=== PATIENT | female | born 1945 | race Caucasian/White ===

== ENCOUNTER 2016-12-23 12:46 | Inpatient (IN) ==
[2016-12-23] MEDS ORDERED: ATIVAN PO PRN ×2 (17:27→18:10)
[2016-12-23] MEDS ORDERED: ROXANOL CONC. LIQUID PEG PRN (17:34)
[2016-12-23] MEDS ORDERED: CALMOSEPTINE OINTMENT TOP PRN (17:42)
[2016-12-23] MEDS ORDERED: PERICOLACE PO PRN (17:47)
[2016-12-23] MEDS ORDERED: GLYCERIN ADULT PR PRN (17:48)
[2016-12-23] MEDS ORDERED: DULCOLAX PR PRN (17:50)
[2016-12-23] MEDS ORDERED: FLEET ENEMA PR PRN (17:51)
[2016-12-23] MEDS ORDERED: MAALOX PLUS LIQUID PO PRN (17:53)
[2016-12-23] MEDS ORDERED: ROBITUSSIN-DM PO PRN (17:54)
[2016-12-23] MEDS ORDERED: TYLENOL PO PRN (18:02)
[2016-12-23] MEDS ORDERED: TYLENOL PR PRN (18:03)
[2016-12-23] MEDS ORDERED: EUCERIN CREAM TOP PRN (18:03)
[2016-12-23] MEDS ORDERED: BENADRYL PO PRN (18:04)
[2016-12-23] MEDS ORDERED: PYRIDIUM PO PRN (18:07)
[2016-12-23] MEDS ORDERED: HALDOL PO PRN (18:09)
[2016-12-23] MEDS ORDERED: IMODIUM PO PRN ×2 (18:12→18:13)
[2016-12-23] MEDS ORDERED: LOMOTIL PO PRN ×2 (18:15→18:24)
[2016-12-23] MEDS ORDERED: COMPAZINE PO PRN (18:28)
[2016-12-23] MEDS ORDERED: COMPAZINE PR PRN (18:28)
[2016-12-23] MEDS ORDERED: LEVSIN-SL SL PRN (18:30)
[2016-12-23] MEDS ORDERED: ATROPINE 1 % OPHTH SOLN SL PRN (18:33)
[2016-12-23] MEDS ORDERED: DIFLUCAN PO PRN ×2 (18:35)
[2016-12-23] MEDS ORDERED: DESYREL PO PRN (18:37)
--- NOTE | 2016-12-23 18:51 | HISTORY AND PHYSICAL ---
CHIEF COMPLAINT: Respite care for 5 days. HISTORY OF PRESENT ILLNESS: Ms. Alas is a 71-year-old white female basically bedridden with end-stage dementia, history of CVA, dysphagia under hospice care, admitted to the hospital for respite care for 5 days. The patient is nonverbal. She moans and groans all the time on oxygen. Most of the history was obtained from the previous reports. PAST MEDICAL HISTORY: Hypertension, diabetes, depression, seizures, dementia, CVA with dysphagia, anxiety, disorder. PAST SURGICAL HISTORY: PEG tube placement, cholecystectomy. ALLERGIES: Flurazepam. MEDICINES: Xanax 0.5 q.8 h. as needed, Ativan 0.5 q.4 h. as needed, Roxanol 520 mg PEG 1 hour as needed, [place] 10 q.4 h. as needed, Calmoseptine ointment as needed, Colace 1 p.o. b.i.d., Fleets and Dulcolax as needed, Maalox as needed, Robitussin DM q.4 h. as needed, clonidine 0.1 b.i.d., Pepcid 20 mg p.o. b.i.d., trazodone 100 at bedtime, baclofen 10 mg PEG 4 times daily, Lantus 35 units daily, Keppra 500 b.i.d., Synthroid 50 mcg daily, Lasix 40 daily, lisinopril 5 mg daily, aspirin 81 mg daily, Lipitor 40 daily, Celexa 20 mg daily, Plavix 75 mg daily, MiraLAX 17 g packet daily, 70/30 20 units subcutaneous b.i.d., verapamil 120 daily. SOCIAL HISTORY: Lives at home with her daughter. No smoking. No alcohol. FAMILY HISTORY: Noncontributory. REVIEW OF SYSTEMS: Unable to obtain. PHYSICAL EXAMINATION: VITAL SIGNS: Afebrile. Vitals are stable. GENERAL: Heavy set. HEENT: Pupils equal, react to light. Tight mastication muscles with thick oral secretions noted. NECK: Supple. No lymphadenopathy. CHEST: Clear. HEART: Sounds are regular. EXTREMITY: Contracted. ABDOMEN: Belly is soft. The PEG was seen. Bedridden in diapers. Contracted. NEUROLOGICAL: Stable. ASSESSMENT: 1. A 71-year-old white female,admitted to the hospital for respite care for 5 days. Plan of care is skin, bladder, and bowels. Nutrition through the PEG. 2. Seizure disorder on Keppra 500 p.o. b.i.d. 3. Type 2 diabetes, 70/30 20 units subcutaneous in the morning. Lantus 35 units subcutaneous at bedtime. 4. Cerebrovascular accident, on Plavix. 5. Gastrointestinal prophylaxis with Pepcid. 6. Hypertension, on verapamil. 7. Continue symptomatic treatment for anxiety and pain. Discussed with the hospice nurse. Continue to monitor for 5 days. cc: Gera Hernandez MD
[2016-12-23] MEDS ORDERED: INSULIN PEN NEEDLES ONE (21:15)
[2016-12-23] MEDS: ASPIRIN PEG SCH (21:32)
[2016-12-23] MEDS: NORCO-10 PEG PRN (21:32)
[2016-12-23] MEDS: LIORESAL PEG SCH (21:33)
[2016-12-23] MEDS: XANAX PEG PRN (21:33)
[2016-12-23] MEDS: PEPCID PEG SCH (21:33)
[2016-12-23] MEDS: PYRIDIUM PEG SCH (21:33)
[2016-12-23] MEDS: DESYREL PEG SCH (21:33)
[2016-12-23] MEDS: CATAPRES PEG SCH (21:33)
[2016-12-23] MEDS: PLAVIX PEG SCH (21:33)
[2016-12-23] MEDS: LIPITOR PEG SCH (21:33)
[2016-12-23] MEDS: KEPPRA PEG SCH (21:33)
[2016-12-23] MEDS: LANTUS SUBQ SCH (21:34)
[2016-12-24] MEDS: SYNTHROID PEG SCH (06:26)
[2016-12-24] MEDS: PYRIDIUM PEG SCH ×3 (07:45→22:51)
[2016-12-24] MEDS: PERICOLACE PEG SCH (10:03)
[2016-12-24] MEDS: CATAPRES PEG SCH ×2 (10:03→22:52)
[2016-12-24] MEDS: PRINIVIL PEG SCH (10:03)
[2016-12-24] MEDS: LIORESAL PEG SCH ×4 (10:04→22:52)
[2016-12-24] MEDS: KEPPRA PEG SCH ×2 (10:04→22:55)
[2016-12-24] MEDS: MIRALAX PEG SCH (10:04)
[2016-12-24] MEDS: LASIX PEG SCH (10:04)
[2016-12-24] MEDS: CELEXA PEG SCH (10:04)
[2016-12-24] MEDS: PEPCID PEG SCH ×2 (10:04→22:55)
[2016-12-24] MEDS: HUMULIN 70/30 SUBQ SCH (10:05)
[2016-12-24] MEDS: ISOPTIN SR MISC SCH (10:05)
--- NOTE | 2016-12-24 14:32 | PROGRESS NOTE ---
DATE: 12/24/2016 SUBJECTIVE: A 71-year-old female admitted to the hospital for respite care. REVIEW OF SYSTEMS: Nonverbal. PHYSICAL EXAMINATION: Vital Signs: Afebrile. Vitals are stable. HEENT: Within normal limits. Chest: Clear. Heart: Sounds are regular. Belly is soft, nontender, contracted. No obvious changes noted. ASSESSMENT AND PLAN: A 71-year-old white female, admitted to the hospital for respite care for 5 days. Continue present medical therapy and care of the skin, bladder, and bowels. LEVEL OF DOCUMENTATION: 15 minutes. cc: Gera Hernandez MD
[2016-12-24] MEDS: ASPIRIN PEG SCH (22:51)
[2016-12-24] MEDS: DESYREL PEG SCH (22:53)
[2016-12-24] MEDS: XANAX PEG PRN (22:54)
[2016-12-24] MEDS: LIPITOR PEG SCH (22:54)
[2016-12-24] MEDS: NORCO-10 PEG PRN (22:55)
[2016-12-24] MEDS: PLAVIX PEG SCH (22:57)
[2016-12-24] MEDS: LANTUS SUBQ SCH (22:59)
[2016-12-25] MEDS: SYNTHROID PEG SCH (06:32)
[2016-12-25] MEDS: PYRIDIUM PEG SCH ×3 (07:56→22:05)
[2016-12-25] MEDS: PRINIVIL PEG SCH (10:20)
[2016-12-25] MEDS: PERICOLACE PEG SCH (10:20)
[2016-12-25] MEDS: CATAPRES PEG SCH ×2 (10:20→22:04)
[2016-12-25] MEDS: MIRALAX PEG SCH (10:21)
[2016-12-25] MEDS: PEPCID PEG SCH ×2 (10:21→22:04)
[2016-12-25] MEDS: LASIX PEG SCH (10:21)
[2016-12-25] MEDS: LIORESAL PEG SCH ×4 (10:21→22:04)
[2016-12-25] MEDS: KEPPRA PEG SCH ×2 (10:21→22:04)
[2016-12-25] MEDS: ISOPTIN SR MISC SCH (10:22)
[2016-12-25] MEDS: CELEXA PEG SCH (10:22)
[2016-12-25] MEDS: HUMULIN 70/30 SUBQ SCH (10:22)
--- NOTE | 2016-12-25 13:10 | PROGRESS NOTE ---
DATE: 12/25/2016 SUBJECTIVE: The patient is nonverbal, lying on the bed, just awake, noncommunicative. REVIEW OF SYSTEMS: None reported. OBJECTIVE: Temperature is 97, pulse is 74, blood pressure 128/45, saturation 99 % on room air. Chest is clear. Heart sounds are regular. In the position. No obvious changes noted. ASSESSMENT AND PLAN: 1. Respite care for 5 days. 2. Hypothyroidism, on Synthroid. 3. Type 2 diabetes on Lantus 70/30, stable. 4. Continue palliative care as per orders. Level of documentation was 15 minutes. cc: Gera Hernandez MD MTDD
[2016-12-25] MEDS: ASPIRIN PEG SCH (22:04)
[2016-12-25] MEDS: LIPITOR PEG SCH (22:04)
[2016-12-25] MEDS: DESYREL PEG SCH (22:04)
[2016-12-25] MEDS: XANAX PEG PRN (22:05)
[2016-12-25] MEDS: LANTUS SUBQ SCH (22:05)
[2016-12-25] MEDS: NORCO-10 PEG PRN (22:05)
[2016-12-25] MEDS: PLAVIX PEG SCH (22:08)
[2016-12-26] MEDS: SYNTHROID PEG SCH (06:12)
[2016-12-26] MEDS: PYRIDIUM PEG SCH ×3 (08:22→22:00)
[2016-12-26] MEDS: PEPCID PEG SCH ×2 (08:22→21:59)
[2016-12-26] MEDS: PRINIVIL PEG SCH (08:23)
[2016-12-26] MEDS: HUMULIN 70/30 SUBQ SCH (08:23)
[2016-12-26] MEDS: LASIX PEG SCH (08:23)
[2016-12-26] MEDS: CELEXA PEG SCH (08:23)
[2016-12-26] MEDS: CATAPRES PEG SCH ×2 (08:23→22:00)
[2016-12-26] MEDS: LIORESAL PEG SCH ×4 (08:23→22:00)
[2016-12-26] MEDS: KEPPRA PEG SCH ×2 (08:23→21:59)
[2016-12-26] MEDS: ISOPTIN SR MISC SCH (08:23)
[2016-12-26] MEDS: PERICOLACE PEG SCH (08:23)
[2016-12-26] MEDS: MIRALAX PEG SCH (08:24)
--- NOTE | 2016-12-26 15:40 | PROGRESS NOTE ---
DATE: 12/26/2016 SUBJECT: Respite care for 5 days. No complaints, nonverbal. EXAM: Vital Signs: Stable. Room air 92%. Chest: Clear. Heart: Sounds are regular. No obvious physical findings noted. ASSESSMENT AND PLAN: A 71-year-old white female admitted to the hospital respite care for 5 days with underlying dementia. Continue present medical therapy. No changes in the plan of care. Discussed with the hospice nurse. She will go back home tomorrow. LEVEL OF DOCUMENTATION: 15 minutes. cc: Gera Hernandez MD
[2016-12-26] MEDS: LIPITOR PEG SCH (21:59)
[2016-12-26] MEDS: DESYREL PEG SCH (21:59)
[2016-12-26] MEDS: PLAVIX PEG SCH (21:59)
[2016-12-26] MEDS: LANTUS SUBQ SCH (22:00)
[2016-12-26] MEDS: ASPIRIN PEG SCH (22:00)
[2016-12-27] MEDS: SYNTHROID PEG SCH (06:23)
[2016-12-27] MEDS: HUMULIN 70/30 SUBQ SCH (08:02)
[2016-12-27] MEDS: MIRALAX PEG SCH (08:02)
[2016-12-27] MEDS: PERICOLACE PEG SCH (08:04)
[2016-12-27] MEDS: PYRIDIUM PEG SCH ×3 (08:04→22:06)
[2016-12-27] MEDS: LIORESAL PEG SCH ×4 (08:05→22:06)
[2016-12-27] MEDS: KEPPRA PEG SCH ×2 (08:05→22:06)
[2016-12-27] MEDS: CELEXA PEG SCH (08:05)
[2016-12-27] MEDS: PEPCID PEG SCH ×2 (08:05→22:06)
[2016-12-27] MEDS: LASIX PEG SCH (08:05)
[2016-12-27] MEDS: PRINIVIL PEG SCH (08:05)
[2016-12-27] MEDS: CATAPRES PEG SCH ×2 (08:05→22:05)
[2016-12-27] MEDS: ISOPTIN SR MISC SCH (08:05)
[2016-12-27] MEDS ORDERED: SODIUM CHLORIDE 0.9% 10 ML ONE (16:45)
[2016-12-27] MEDS: DESYREL PEG SCH (22:05)
[2016-12-27] MEDS: PLAVIX PEG SCH (22:06)
[2016-12-27] MEDS: ASPIRIN PEG SCH (22:06)
[2016-12-27] MEDS: LIPITOR PEG SCH (22:06)
[2016-12-27] MEDS: LANTUS SUBQ SCH (22:07)
[2016-12-28] MEDS: SYNTHROID PEG SCH (06:19)
[2016-12-28] MEDS ORDERED: INSULIN PEN NEEDLES ONE (07:23)
[2016-12-28 07:30] VITALS: BP 138/54
[2016-12-28] MEDS: CATAPRES PEG SCH (08:11)
[2016-12-28] MEDS: MIRALAX PEG SCH (08:11)
[2016-12-28] MEDS: ISOPTIN SR MISC SCH (08:12)
[2016-12-28] MEDS: PERICOLACE PEG SCH (08:13)
[2016-12-28] MEDS: PRINIVIL PEG SCH (08:13)
[2016-12-28] MEDS: PYRIDIUM PEG SCH (08:14)
[2016-12-28] MEDS: CELEXA PEG SCH (08:15)
[2016-12-28] MEDS: KEPPRA PEG SCH (08:15)
[2016-12-28] MEDS: LIORESAL PEG SCH (08:15)
[2016-12-28] MEDS: PEPCID PEG SCH (08:16)
[2016-12-28] MEDS: LASIX PEG SCH (08:16)
--- NOTE | 2016-12-28 23:22 | DISCHARGE SUMMARY ---
ADMISSION DATE: 12/23/2016 DISCHARGE DATE: 12/28/2016 DISCHARGING DIAGNOSIS: Respite care for 5 days. FINAL DIAGNOSIS: 1. Hypertension. 2. Type 2 diabetes. 3. Depression. 4. Seizure. 5. Dementia. 6. Cerebrovascular accident with dysphagia. 7. Anxiety disorder. 8. Percutaneous endoscopic gastrostomy placement. BRIEF HISTORY: Please see the H and P that was done on 12/23/2016. In brief, she is a 71-year- old white female who was admitted to the hospital respite care for 5 days with the above problems. During the hospital, patient did not have any untoward complications. Patient was sent home in a stable condition. DISCHARGE INSTRUCTIONS: 1. Xanax 0.5 q.8 hours as needed. Lorazepam 0.51 mg q.4 as needed. Roxanol liquid 5-20 mg every 1 hour as needed. Calmoseptine ointment as needed. Madison-Colace 1 tablet p.o. b.i.d. Dulcolax and Fleet enema as needed. Avelox as needed. Robitussin DM q.4 hours as needed. Eucerin cream as needed. Trazodone 100 at bedtime. Clonidine 0.1 p.o. b.i.d. Pepcid 20 p.o. b.i.d. Baclofen 10, 4 times daily. Lantus 35 units subcutaneous at bedtime. Keppra 500 p.o. b.i.d. Synthroid 50 mcg daily. Lasix 40 daily. Lisinopril 5 mg daily. Aspirin 81 daily. Lipitor 40 daily. Celexa 20 daily. Plavix 75 daily. MiraLAX as needed. Insulin 70/30, 20 units in the morning. Verapamil 120 daily. 2. Care of the skin, bladder, and bowels. 3. Living Will to be discussed. Follow up her progress through the IDG meetings. cc: Gera Hernandez MD
--- NOTE | 2016-12-29 03:41 | PROGRESS NOTE ---
DATE: 12/27/2016 SUBJECTIVE: Ms. Llamas was seen by the hospice nurse today. She is on respite care. She has severe dementia, had a stroke on the left side of the body, has a G-tube and gets feeding 4 times a day. She tolerates it well. -1 cc: MD Gera Witt MD
== END 2016-12-28 09:19 | disposition hospice, home (50) ==
LOC: DIRADM 12:46 → 3N 16:41
PROVIDERS: ADMIT Internal Medicine; ATTEND Internal Medicine

== ENCOUNTER 2017-01-27 09:44 | Inpatient (IN) ==
[2017-01-27] MEDS ORDERED: XANAX PEG PRN (10:33)
[2017-01-27] MEDS ORDERED: ATIVAN PEG PRN (10:41)
[2017-01-27] MEDS ORDERED: ROXANOL CONC. LIQUID PEG PRN (10:42)
[2017-01-27] MEDS ORDERED: NORCO-10 PEG PRN (10:43)
[2017-01-27] MEDS ORDERED: GLYCERIN ADULT PR PRN (10:47)
[2017-01-27] MEDS ORDERED: FLEET ENEMA PR PRN (10:48)
[2017-01-27] MEDS ORDERED: DULCOLAX PR PRN (10:48)
[2017-01-27] MEDS ORDERED: MAALOX PLUS LIQUID PEG PRN (10:49)
[2017-01-27] MEDS ORDERED: ROBITUSSIN CF PEG PRN (10:50)
[2017-01-27] MEDS ORDERED: TYLENOL PEG PRN (10:50)
[2017-01-27] MEDS ORDERED: TYLENOL PR PRN (10:50)
[2017-01-27] MEDS ORDERED: EUCERIN CREAM TOP PRN (10:52)
[2017-01-27] MEDS ORDERED: BENADRYL PEG PRN (10:52)
[2017-01-27] MEDS ORDERED: PYRIDIUM PO PRN (10:54)
[2017-01-27] MEDS ORDERED: PYRIDIUM PEG PRN (10:55)
[2017-01-27] MEDS ORDERED: PYRIDIUM PEG SCH (13:00)
[2017-01-27] MEDS: LIORESAL PEG SCH ×3 (13:50→20:57)
--- NOTE | 2017-01-27 19:42 | HISTORY AND PHYSICAL ---
The patient has been admitted to the hospital for respite care for 5 days. HISTORY OF PRESENT ILLNESS: Ms. Alas is a 71-year-old pleasant white female, basically bedridden with end-stage dementia, CVA, dysphagia under hospice care, admitted to the hospital for respite care for 5 days. Patient is nonverbal. She moans and groans. On oxygen. Most of the history was obtained from the previous report. REVIEW OF SYSTEMS: Unable to obtain. PAST MEDICAL HISTORY: Hypertension, diabetes, depression, seizures, dementia, CVA with dysphagia, chronic anxiety disorder. PAST SURGICAL HISTORY: PEG tube placement, cholecystectomy. ALLERGIES: Flurazepam. MEDICATIONS: Xanax 0.5 q.8 h., Ativan 0.5 q.6 h., Roxanol 20 mg in the PEG every 1 hour as needed, Colace 100 p.o. b.i.d., Fleet enemas as needed, Pepcid 20 p.o. b.i.d., trazodone 100 at bedtime, baclofen 10 PEG 4 times daily, Lantus 35 units daily, Keppra 500 p.o. b.i.d., Synthroid 50 mcg daily, Lasix 40 daily, lisinopril 5 mg daily, aspirin 80 mg daily, Lipitor 40 mg daily, Celexa 20 daily, Plavix 75 daily, MiraLAX 17 g daily, Humulin 70/30 20 units subcutaneous b.i.d., verapamil 120 daily. SOCIAL HISTORY: Lives at home with her daughter. No smoking. No alcohol. FAMILY HISTORY: Noncontributory. REVIEW OF SYSTEMS: Unable to obtain. PHYSICAL EXAMINATION: VITAL SIGNS: Stable, afebrile. HEENT: Within normal limits. CHEST: Clear to auscultation. HEART: Sounds are regular. ABDOMEN: Belly is soft, obese, nontender. Good bowel sounds. PEG was seen. Bedridden in diapers. Contracted NEUROLOGICAL: Contracted. Able to move all the limbs. ASSESSMENT: A 71-year-old white female admitted to the hospital for respite care for 5 days. PLAN OF CARE: 1. Skin care, bladder and bowels. 2. Nutrition through the PEG. 3. Seizures, on Keppra 500 b.i.d. 4. Type 2 diabetes, 70/30 20 units subcutaneous in the morning. Lantus 30 units at bedtime. 5. History of CVA on Plavix. 6. GI prophylaxis with Pepcid. 7. Hypertension on verapamil. 8. Continue symptomatic treatment for anxiety and pain. 9. Continue her progress for next 5 days. cc: Gera Hernandez MD
[2017-01-27] MEDS: DESYREL PEG SCH (20:57)
[2017-01-27] MEDS: KEPPRA PEG SCH (20:57)
[2017-01-27] MEDS: CATAPRES PEG SCH (20:58)
[2017-01-27] MEDS: PEPCID PEG SCH (20:58)
[2017-01-27] MEDS: LANTUS SUBQ SCH (21:16)
[2017-01-27] MEDS ORDERED: INSULIN PEN NEEDLES ONE (21:19)
[2017-01-28] MEDS: CELEXA PEG SCH (10:42)
[2017-01-28] MEDS: CATAPRES PEG SCH ×2 (10:42→20:39)
[2017-01-28] MEDS: ASPIRIN PEG SCH (10:42)
[2017-01-28] MEDS: HUMULIN 70/30 SUBQ SCH (10:43)
[2017-01-28] MEDS: ISOPTIN PEG SCH (10:43)
[2017-01-28] MEDS: LIORESAL PEG SCH ×4 (10:44→20:39)
[2017-01-28] MEDS: KEPPRA PEG SCH ×2 (10:44→20:39)
[2017-01-28] MEDS: LASIX PEG SCH (10:44)
[2017-01-28] MEDS: LIPITOR PEG SCH (10:44)
[2017-01-28] MEDS: PEPCID PEG SCH ×2 (10:45→20:39)
[2017-01-28] MEDS: MIRALAX PEG SCH (10:45)
[2017-01-28] MEDS: PERICOLACE PEG SCH (10:45)
[2017-01-28] MEDS: PLAVIX PEG SCH (10:46)
[2017-01-28] MEDS: PRINIVIL PEG SCH (10:46)
--- NOTE | 2017-01-28 11:56 | PROGRESS NOTE ---
DATE: 01/28/2017 SUBJECTIVE: The patient did not answer me when I asked her questions. A nurse told me that she asked how she was feeling, and she said fine, but that is all that she would say. She is in the hospital for respite care, and she has end-stage dementia. She has also had a previous CVA and has had some dysphagia. Other medical history includes hypertension, diabetes, depression, seizures, and chronic anxiety disorder. At this time, she seems to be doing well. OBJECTIVE: Vital signs: Blood pressure 150/75. Earlier, it was 138/62. Pulse 99, temp 98.9 degrees Fahrenheit, oxygen saturation is 97% on room air. HEENT: She is normocephalic. Neck: Supple. Lungs: Clear to auscultation and percussion without rhonchi, rales, or wheezes. Heart: Regular rate and rhythm without murmurs, gallops, or friction rubs. Abdomen: Soft, active bowel sounds, no organomegaly or tenderness. The patient is overweight. Neurological: The patient does show signs of dementia. ASSESSMENT: Dementia. PLAN: Continue care. cc: MD Gera Vázquez Jr, MD
[2017-01-28] MEDS: SYNTHROID PEG SCH (19:42)
[2017-01-28] MEDS: LANTUS SUBQ SCH (20:38)
[2017-01-28] MEDS: DESYREL PEG SCH (20:39)
[2017-01-29] MEDS: SYNTHROID PEG SCH (06:48)
[2017-01-29] MEDS: MIRALAX PEG SCH (10:08)
[2017-01-29] MEDS: PERICOLACE PEG SCH (10:08)
[2017-01-29] MEDS: KEPPRA PEG SCH ×2 (10:08→22:38)
[2017-01-29] MEDS: LASIX PEG SCH (10:08)
[2017-01-29] MEDS: PEPCID PEG SCH ×2 (10:08→22:37)
[2017-01-29] MEDS: LIORESAL PEG SCH ×4 (10:09→22:38)
[2017-01-29] MEDS: LIPITOR PEG SCH (10:09)
[2017-01-29] MEDS: ISOPTIN PEG SCH (10:09)
[2017-01-29] MEDS: PRINIVIL PEG SCH (10:09)
[2017-01-29] MEDS: CATAPRES PEG SCH ×2 (10:09→22:38)
[2017-01-29] MEDS: PLAVIX PEG SCH (10:09)
[2017-01-29] MEDS: ASPIRIN PEG SCH (10:10)
[2017-01-29] MEDS: HUMULIN 70/30 SUBQ SCH (10:10)
[2017-01-29] MEDS: CELEXA PEG SCH (10:10)
--- NOTE | 2017-01-29 12:23 | PROGRESS NOTE ---
DATE: 01/29/2017 SUBJECTIVE: I asked how she was felt, said fine. I asked her other questions and she would not answer anything else. OBJECTIVE: Vital signs: Blood pressure is 156/66, respirations 18, pulse 83, temperature 98.6 degrees Fahrenheit. HEENT: She is normocephalic. EOMs intact. SANDRITA. Throat clear. Lungs: Clear to auscultation and percussion without rhonchi, rales, or wheezes. Heart: Regular rate rhythm without murmurs, gallops, or friction rubs. Abdomen: Soft. Active bowel sounds. No organomegaly or tenderness. The patient is overweight. Neurological: Patient does show signs of dementia. She is here for her respite care. ASSESSMENT: 1. Dementia 2. Here for respite care. PLAN: Continue care. cc: MD Gera Vázquez Jr, MD
[2017-01-29] MEDS: LANTUS SUBQ SCH (22:36)
[2017-01-29] MEDS: DESYREL PEG SCH (22:38)
[2017-01-30] MEDS: SYNTHROID PEG SCH (06:29)
--- NOTE | 2017-01-30 09:06 | PROGRESS NOTE ---
DATE: 01/30/2017 SUBJECTIVE: The patient is on respite care. No complaints. Staff is cleaning and giving a bathing. No external bruises or ulcers noted. The patient is noncommunicative. REVIEW OF SYSTEMS: None reported. OBJECTIVE: Signs: Stable. Low-grade fever. HEENT: Within normal limits. Chest: Clear. Heart: Sounds are regular. Abdomen: Belly is soft. G tube was placed. Extremities: Contracted. ASSESSMENT AND PLAN: This is a 71-year-old white female admitted to the hospital for respite care for 5 days. She was admitted on 01/27. Continue present medical therapy. Stable. Blood sugars are doing very well. LEVEL OF DOCUMENTATION: 15 minutes. cc: Gera Hernandez MD
[2017-01-30] MEDS: LASIX PEG SCH (09:43)
[2017-01-30] MEDS: PERICOLACE PEG SCH (09:43)
[2017-01-30] MEDS: CELEXA PEG SCH (09:43)
[2017-01-30] MEDS: CATAPRES PEG SCH ×2 (09:43→20:40)
[2017-01-30] MEDS: HUMULIN 70/30 SUBQ SCH (09:43)
[2017-01-30] MEDS: MIRALAX PEG SCH (09:43)
[2017-01-30] MEDS: PRINIVIL PEG SCH (09:43)
[2017-01-30] MEDS: KEPPRA PEG SCH ×2 (09:43→20:40)
[2017-01-30] MEDS: ISOPTIN PEG SCH (09:44)
[2017-01-30] MEDS: ASPIRIN PEG SCH (09:44)
[2017-01-30] MEDS: PEPCID PEG SCH ×2 (09:44→20:40)
[2017-01-30] MEDS: PLAVIX PEG SCH (09:44)
[2017-01-30] MEDS: LIPITOR PEG SCH (09:44)
[2017-01-30] MEDS: LIORESAL PEG SCH ×4 (09:44→20:40)
[2017-01-30] MEDS: DESYREL PEG SCH (20:40)
[2017-01-30] MEDS: LANTUS SUBQ SCH (20:40)
[2017-01-31] MEDS: SYNTHROID PEG SCH (06:04)
[2017-01-31] MEDS: ISOPTIN PEG SCH (08:05)
--- NOTE | 2017-01-31 08:28 | PROGRESS NOTE ---
DATE: 01/31/2017 SUBJECTIVE: Patient is not offering any complaints. Still bedridden. Awake, able to follow with verbal commands. Not able to speak. PHYSICAL EXAMINATION: Afebrile. Vitals are stable. I's and O's even. HEENT: Exam is within normal limits. Chest is clear. Heart sounds are regular. Contracted. ASSESSMENT AND PLAN: A 71-year-old white female, continue respite care. Today is the last day. She will be discharged in the morning. Continue present palliative care and comfort services. LEVEL OF DOCUMENTATION: 15 minutes. cc: Gera Hernandez MD
[2017-01-31] MEDS: ASPIRIN PEG SCH (08:49)
[2017-01-31] MEDS: PRINIVIL PEG SCH (08:49)
[2017-01-31] MEDS: PLAVIX PEG SCH (08:49)
[2017-01-31] MEDS: CELEXA PEG SCH (08:49)
[2017-01-31] MEDS: LIPITOR PEG SCH (08:50)
[2017-01-31] MEDS: CATAPRES PEG SCH ×2 (08:50→21:58)
[2017-01-31] MEDS: PEPCID PEG SCH ×2 (08:50→21:58)
[2017-01-31] MEDS: HUMULIN 70/30 SUBQ SCH (08:50)
[2017-01-31] MEDS: LIORESAL PEG SCH ×5 (08:50→21:59)
[2017-01-31] MEDS: LASIX PEG SCH (08:50)
[2017-01-31] MEDS: KEPPRA PEG SCH ×2 (08:50→21:59)
[2017-01-31] MEDS: MIRALAX PEG SCH (08:50)
[2017-01-31] MEDS: PERICOLACE PEG SCH (09:03)
[2017-01-31] MEDS ORDERED: INSULIN PEN NEEDLES ONE (15:38)
[2017-01-31 20:55] VITALS: BP 140/50
[2017-01-31] MEDS: LANTUS SUBQ SCH (21:59)
[2017-01-31] MEDS: DESYREL PEG SCH (21:59)
[2017-02-01] MEDS: SYNTHROID PEG SCH (06:12)
[2017-02-01] MEDS: HUMULIN 70/30 SUBQ SCH (08:17)
[2017-02-01] MEDS: CELEXA PEG SCH (08:17)
[2017-02-01] MEDS: PERICOLACE PEG SCH (08:17)
[2017-02-01] MEDS: LIORESAL PEG SCH (08:17)
[2017-02-01] MEDS: ASPIRIN PEG SCH (08:17)
[2017-02-01] MEDS: LIPITOR PEG SCH (08:17)
[2017-02-01] MEDS: PEPCID PEG SCH (08:17)
[2017-02-01] MEDS: PLAVIX PEG SCH (08:17)
[2017-02-01] MEDS: PRINIVIL PEG SCH (08:17)
[2017-02-01] MEDS: LASIX PEG SCH (08:17)
[2017-02-01] MEDS: CATAPRES PEG SCH (08:18)
[2017-02-01] MEDS: KEPPRA PEG SCH (08:18)
[2017-02-01] MEDS: ISOPTIN PEG SCH (08:18)
[2017-02-01] MEDS: MIRALAX PEG SCH (08:19)
--- NOTE | 2017-02-02 06:06 | DISCHARGE SUMMARY ---
ADMISSION DATE: 01/27/2017 DISCHARGE DATE: 02/01/2017 FINAL DIAGNOSES: 1. CVA with dysphagia and aphasia. 2. Hypertension. 3. Type 2 diabetes. 4. Hypertension. 5. Seizure. 6. Anxiety disorder. 7. Status post PEG placement. BRIEF HISTORY: Please see the H and P that was done on the day of admission 09/2016. In brief, she is a 71-year-old white female with above problems admitted to the hospital respite care for 5 days. During this hospital course, patient did not have any complications. She was discharged back home with her caregiver and continue to monitor clinical progress during inter disciplinary group meetings. DISCHARGE INSTRUCTIONS: 1. Xanax 0.5 q.8h as needed. 2. Roxanol liquid 5/20 mg every 1 hour as needed. 3. Calmoseptine ointment. 4. Madison-Colace 1 tablet p.o. b.i.d. 5. Dulcolax as needed. 6. Robitussin DM q.4 as needed. 7. Eucerin cream as needed. 8. Trazodone 100 at bedtime. 9. Clonidine 0.1 p.o. b.i.d. 10. Pepcid 20 p.o. b.i.d. 11. Baclofen 10 4 times daily. 12. Lantus 35 units subcutaneous at bedtime. 13. Keppra 500 p.o. b.i.d. 14. Synthroid 50 mcg daily. 15. Lasix 40 daily. 16. Lisinopril 5 mg daily. 17. Aspirin 81 mg daily. 18. Lipitor 40 daily. 19. Celexa 20 daily. 20. Plavix 75 daily. 21. MiraLAX as needed. 22. 70/30 insulin 20 units in the morning. 23. Verapamil 120 daily. All of these medicines were going through the PEG placement. Living will was discussed. Continue to monitor. cc: Gera Hernandez MD [facility]
== END 2017-02-01 10:27 | disposition hospice, home (50) ==
LOC: DIRADM 09:44 → 3N 09:47
PROVIDERS: ADMIT Internal Medicine; ATTEND Internal Medicine

== ENCOUNTER 2018-10-02 08:05 | Inpatient (IN) ==
[2018-10-02] MEDS ORDERED: DULCOLAX PR PRN (12:27)
[2018-10-02] MEDS ORDERED: ROBITUSSIN PEG PRN (12:29)
[2018-10-02] MEDS ORDERED: LACTULOSE PEG PRN (12:30)
[2018-10-02] MEDS ORDERED: ATIVAN PEG PRN (12:32)
[2018-10-02] MEDS ORDERED: PERICOLACE PEG PRN (12:35)
[2018-10-02] MEDS ORDERED: PATIENT'S OWN MED TOP PRN (12:36)
[2018-10-02] MEDS ORDERED: ROBITUSSIN-DM PEG PRN (12:37)
[2018-10-02] MEDS ORDERED: ZOFRAN PEG PRN (12:38)
[2018-10-02] MEDS ORDERED: HUMULIN 70/30 SUBQ PRN (12:39)
[2018-10-02] MEDS: PYRIDIUM PEG SCH ×2 (13:42→23:44)
[2018-10-02] MEDS: XANAX PEG SCH ×2 (13:42→22:40)
[2018-10-02] MEDS: LIORESAL PEG SCH ×3 (13:43→22:39)
[2018-10-02] MEDS: ROXANOL CONC. LIQUID PEG PRN (13:43)
[2018-10-02] MEDS: HUMULIN 70/30 SUBQ SCH (16:27)
[2018-10-02] MEDS ORDERED: INSULIN PEN NEEDLES ONE (16:29)
--- NOTE | 2018-10-02 21:56 | HISTORY AND PHYSICAL ---
CHIEF COMPLAINT: Respite care for 5 days starting on 10/02/2018. HISTORY OF PRESENT ILLNESS: She is a 73-year-old white female, basically bedridden with endstage dementia, CVA, dysphagia, on hospice care. Admitted to the hospital for respite care for 5 days. The patient is nonverbal, moaning and groaning, on oxygen. The patient is lying in the bed in moribund state and responding to verbal stimulus, with a position. The patient is in diaper. No family was around. PAST MEDICAL HISTORY: Hypertension, diabetes, depression, seizures, dementia, CVA with dysphagia, chronic anxiety disorder, metabolic syndrome. PAST SURGICAL HISTORY: PEG placement, cholecystectomy. ALLERGIES: Flurazepam. MEDICATIONS: Dulcolax 10 mg p.r.n.; guaifenesin 5 mL via PEG q.4 as needed; Xanax 0.5 via PEG q.8 hours; lactulose 30 mg daily as needed; lorazepam 0.5 to 1 mg q.4 hours as needed; Roxanol 5/20 on the PEG every 1 hour as needed; Madison-Colace 1 tablet p.o. b.i.d. as needed; tramadol 50 via PEG t.i.d. as needed; baclofen 10 mg via PEG 4 times daily; 70/30 insulin 20 units subcutaneous b.i.d.; clonidine 0.1 via PEG b.i.d.; Keppra 500 b.i.d.; trazodone 100 mg daily; Lipitor 40 mg daily; Pepcid 20 b.i.d.; Synthroid 50 mcg daily; Plavix 75 daily; Lasix 40 mg daily; lisinopril 5 mg daily; aspirin 81 mg via PEG daily; Celexa 20 mg daily; Reglan 10 mg via PEG daily; Isoptin 120 mg daily; fentanyl patch 50 mcg every 72 hours. SOCIAL HISTORY: Lives at home with daughter. No smoking, no alcohol. FAMILY HISTORY: Noncontributory. REVIEW OF SYSTEMS: Unable to obtain. Living Will: DNR level 1. PHYSICAL EXAMINATION: VITAL SIGNS: Temperature is 98 degrees, pulse 90, blood pressure is 120/89, 96% on room air. GENERAL: The patient is in position, moaning and groaning. HEENT: The patient has a dark spot noted on the right judaism. Eyes are congested. Oral secretions are prominent. CHEST: Rattling in the chest. Poor air entry. HEART: Distant heart sounds. ABDOMEN: Belly is soft, obese. A PEG was placed. GENITOURINARY: The patient is in diapers. SKIN: No bedsores noted. EXTREMITIES: Contracted. ASSESSMENT AND PLAN: 1. A 73-year-old white female basically admitted to the hospital for respite care for 5 days, starting from 10/02/2018. Care of the skin, bladder and bowels. 2. Nutrition via percutaneous endoscopic gastrostomy tube. Nothing by mouth. 3. Control the diabetes, present dose insulin. 4. Living Will: Do Not Resuscitate/Allow Natural . 5. Continue palliative services. cc: Gera Hernandez MD
[2018-10-02] MEDS: KEPPRA PEG SCH (22:38)
[2018-10-02] MEDS: DESYREL PEG SCH (22:39)
[2018-10-02] MEDS: LIPITOR PEG SCH (22:39)
[2018-10-02] MEDS: CATAPRES PEG SCH (22:39)
[2018-10-02] MEDS: PEPCID PEG SCH (22:40)
[2018-10-03] MEDS: XANAX PEG SCH ×2 (07:59→16:42)
[2018-10-03] MEDS: SYNTHROID PEG SCH (08:00)
[2018-10-03] MEDS: HUMULIN 70/30 SUBQ SCH ×2 (08:10→16:43)
[2018-10-03] MEDS: PRINIVIL PEG SCH (09:24)
[2018-10-03] MEDS: KEPPRA PEG SCH ×2 (09:24→23:18)
[2018-10-03] MEDS: PLAVIX PEG SCH (09:26)
[2018-10-03] MEDS: ISOPTIN PEG SCH (09:26)
[2018-10-03] MEDS: LIORESAL PEG SCH ×4 (09:26→23:17)
[2018-10-03] MEDS: PYRIDIUM PEG SCH ×3 (09:26→18:01)
[2018-10-03] MEDS: LASIX PEG SCH (09:27)
[2018-10-03] MEDS: ASPIRIN PEG SCH (09:27)
[2018-10-03] MEDS: CATAPRES PEG SCH ×2 (09:27→23:17)
[2018-10-03] MEDS: REGLAN PEG SCH (09:27)
[2018-10-03] MEDS: CELEXA PEG SCH (09:27)
[2018-10-03] MEDS: PEPCID PEG SCH ×2 (09:27→23:18)
[2018-10-03] MEDS: DESITIN OINTMENT TOP SCH (11:32)
[2018-10-03] MEDS: ULTRAM PEG PRN (16:42)
--- NOTE | 2018-10-03 20:54 | PROGRESS NOTE ---
DATE: 10/03/2018 SUBJECTIVE: Patient admitted for respite care and not able to communicate. OBJECTIVE: On examination, temperature is 98 degrees, pulse is 89, blood pressure 107/52. Heavyset, bedridden, position. ASSESSMENT: 1. End-stage dementia. 2. Diabetes. PLAN OF CARE: 1. Continue respite care. 2. Care of the skin, bladder, and bowels. 3. Living will, Do Not Resuscitate. 4. Most of the medicines administering through the percutaneous endoscopic gastrostomy tube. 5. Pain is adequately controlled. LEVEL OF DOCUMENTATION: 15 minutes. cc: Gera Hernandez MD
[2018-10-03] MEDS: DESYREL PEG SCH (23:17)
[2018-10-03] MEDS: LIPITOR PEG SCH (23:18)
[2018-10-04] MEDS: XANAX PEG SCH ×3 (05:25→19:07)
[2018-10-04] MEDS: SYNTHROID PEG SCH (06:52)
[2018-10-04] MEDS: HUMULIN 70/30 SUBQ SCH ×2 (06:57→19:07)
[2018-10-04] MEDS: PRINIVIL PEG SCH (08:53)
[2018-10-04] MEDS: CELEXA PEG SCH (08:54)
[2018-10-04] MEDS: KEPPRA PEG SCH ×2 (08:54→23:09)
[2018-10-04] MEDS: ASPIRIN PEG SCH (08:54)
[2018-10-04] MEDS: ISOPTIN PEG SCH (08:54)
[2018-10-04] MEDS: LIORESAL PEG SCH ×4 (08:54→23:08)
[2018-10-04] MEDS: REGLAN PEG SCH (08:54)
[2018-10-04] MEDS: PYRIDIUM PEG SCH ×3 (08:56→19:06)
[2018-10-04] MEDS: LASIX PEG SCH (08:56)
[2018-10-04] MEDS: CATAPRES PEG SCH ×2 (08:56→23:09)
[2018-10-04] MEDS: PLAVIX PEG SCH (08:56)
[2018-10-04] MEDS: PEPCID PEG SCH ×2 (08:56→23:09)
[2018-10-04] MEDS: ULTRAM PEG PRN ×2 (09:15→19:05)
[2018-10-04] MEDS: DESITIN OINTMENT TOP SCH (09:15)
--- NOTE | 2018-10-04 21:41 | PROGRESS NOTE ---
DATE: 10/04/2018 SUBJECTIVE: The patient is in respite care. No complaints. OBJECTIVE: Temperature is low-grade fever. Slightly tachycardic. Pain is adequately controlled. Low-grade fever. ASSESSMENT AND PLAN: 1. Respite care for 5 days. 2. Low-grade fever. 3. Patient care was discussed in the interdisciplinary group meeting. [facility] nurse wants to do urine culture for the evaluation of fever. Based on the symptoms and signs of infection, further recommendations will be followed. 4. Continue present treatment. 5. Living Will: Do Not Resuscitate/Allow Natural . Level of documentation is 15 minutes. cc: Gera Hernandez MD
[2018-10-04] MEDS: LIPITOR PEG SCH (23:08)
[2018-10-04] MEDS: DESYREL PEG SCH (23:09)
[2018-10-05] MEDS: XANAX PEG SCH ×3 (02:48→19:00)
[2018-10-05] MEDS: SYNTHROID PEG SCH (06:39)
[2018-10-05] MEDS: HUMULIN 70/30 SUBQ SCH ×2 (06:42→15:46)
[2018-10-05] MEDS ORDERED: DURAGESIC 50 MICROGM/HR PATCH TD SCH (09:00)
[2018-10-05] MEDS: KEPPRA PEG SCH ×2 (09:54→22:38)
[2018-10-05] MEDS: ISOPTIN PEG SCH (09:54)
[2018-10-05] MEDS: PYRIDIUM PEG SCH ×3 (09:54→19:00)
[2018-10-05] MEDS: LIORESAL PEG SCH ×4 (09:54→22:39)
[2018-10-05] MEDS: REGLAN PEG SCH (09:55)
[2018-10-05] MEDS: PLAVIX PEG SCH (09:55)
[2018-10-05] MEDS: CELEXA PEG SCH (09:55)
[2018-10-05] MEDS: PEPCID PEG SCH ×2 (09:55→22:39)
[2018-10-05] MEDS: DESITIN OINTMENT TOP SCH (09:55)
[2018-10-05] MEDS: ASPIRIN PEG SCH (09:55)
[2018-10-05] MEDS: CATAPRES PEG SCH ×2 (09:55→22:38)
[2018-10-05] MEDS: PRINIVIL PEG SCH (09:55)
[2018-10-05] MEDS: LASIX PEG SCH (09:56)
[2018-10-05] MEDS: ROXANOL CONC. LIQUID PEG PRN ×2 (13:14→19:05)
--- NOTE | 2018-10-05 16:44 | PROGRESS NOTE ---
DATE: 10/05/2018 SUBJECT: The patient is still in moribund state, no complaints. Complaints of low-grade fever yesterday white. OBJECTIVE: Temperature is 98 degrees, pulse is 89. Blood pressure is 150/65.HEENT: Exam within normal limits. Seborrheic moles on the right upper denominational noted. Chest is clear. Distant heart sounds. Belly is soft, nontender, with PEG tube. DIAGNOSTIC STUDIES: Urine cultures so far negative. ASSESSMENT AND PLAN: 1. Possible urinary tract infection. We will follow. 2. Respite care. 3. Do Not Resuscitate. 4. Continue present treatment for diabetes. cc: Gera Hernandez MD
[2018-10-05] MEDS: ULTRAM PEG PRN (19:05)
[2018-10-05] MEDS: DESYREL PEG SCH (22:38)
[2018-10-05] MEDS: LIPITOR PEG SCH (22:39)
[2018-10-06] MEDS: XANAX PEG SCH ×3 (02:45→17:55)
[2018-10-06] MEDS: SYNTHROID PEG SCH (06:45)
[2018-10-06] MEDS: HUMULIN 70/30 SUBQ SCH ×2 (06:45→16:38)
[2018-10-06] MEDS: PYRIDIUM PEG SCH ×3 (08:44→16:38)
[2018-10-06] MEDS: LASIX PEG SCH (08:45)
[2018-10-06] MEDS: PEPCID PEG SCH ×2 (08:45→22:13)
[2018-10-06] MEDS: CELEXA PEG SCH (08:45)
[2018-10-06] MEDS: REGLAN PEG SCH (08:45)
[2018-10-06] MEDS: PRINIVIL PEG SCH (08:45)
[2018-10-06] MEDS: LIORESAL PEG SCH ×4 (08:45→22:13)
[2018-10-06] MEDS: ISOPTIN PEG SCH (08:45)
[2018-10-06] MEDS: PLAVIX PEG SCH (08:45)
[2018-10-06] MEDS: ASPIRIN PEG SCH (08:45)
[2018-10-06] MEDS: KEPPRA PEG SCH ×2 (08:45→22:13)
[2018-10-06] MEDS: CATAPRES PEG SCH ×2 (08:45→22:13)
[2018-10-06] MEDS: DESITIN OINTMENT TOP SCH (08:46)
--- NOTE | 2018-10-06 13:08 | PROGRESS NOTE ---
DATE: 10/06/2018 SUBJECTIVE: Patient remains on respite care per hospice. Dr. Hernandez has been seeing her and she has been stable generally. She has had a very low-grade fever and the urine culture is growing out mixed j carlos. She is at her baseline, alert, looking about, but not able to verbalize any words. OBJECTIVE: Vital signs: T-max 98.5 degrees axillary, pulse 87, respirations 20, blood pressure 120/49. O2 saturation room air 95%. Obese, debilitated-appearing white female. Skin: Around the PEG site, left abdomen is nonpurulent. No major breakdown identified over the legs or feet heel areas. Cardiovascular: Regular rate and rhythm. Lungs: Minimal coarseness to the right lung compared to the left. Active bowel sounds. Nondistended. Extremities: No major edema. Neuro: Again, patient moans slightly, but does not appear in any distress. Blood sugars in the 200s primarily. ASSESSMENT: 1. Low-grade fever. Overall improved with no obvious source of infection. 2. Respite care/hospice care. 3. Do Not Resuscitate level 1. 4. Dementia. 5. Seizure disorder. 6. History of cerebrovascular accident with dysphagia, on percutaneous endoscopic gastrostomy tube feeds. 7. Diabetes mellitus, insulin requiring. 8. Hypertension. 9. Chronic anxiety disorder. 10. Hypertension. PLAN: Continue present treatments of home medications. Monitor for any signs of infection. Respite care will end tomorrow if she does not spike a high fever. Continue supportive measures. cc: MD Gera Garcia MD
[2018-10-06] MEDS: LIPITOR PEG SCH (22:13)
[2018-10-06] MEDS: DESYREL PEG SCH (22:13)
[2018-10-07] MEDS: XANAX PEG SCH ×2 (04:14→09:49)
[2018-10-07] MEDS: SYNTHROID PEG SCH (06:29)
[2018-10-07] MEDS: HUMULIN 70/30 SUBQ SCH (06:30)
[2018-10-07 07:26] VITALS: BP 146/47
[2018-10-07] MEDS: CATAPRES PEG SCH (09:45)
[2018-10-07] MEDS: REGLAN PEG SCH (09:45)
[2018-10-07] MEDS: PEPCID PEG SCH (09:45)
[2018-10-07] MEDS: PYRIDIUM PEG SCH (09:45)
[2018-10-07] MEDS: CELEXA PEG SCH (09:48)
[2018-10-07] MEDS: PRINIVIL PEG SCH (09:48)
[2018-10-07] MEDS: PLAVIX PEG SCH (09:48)
[2018-10-07] MEDS: ASPIRIN PEG SCH (09:48)
[2018-10-07] MEDS: LIORESAL PEG SCH (09:48)
[2018-10-07] MEDS: LASIX PEG SCH (09:48)
[2018-10-07] MEDS: KEPPRA PEG SCH (09:48)
[2018-10-07] MEDS: ISOPTIN PEG SCH (09:49)
--- NOTE | 2018-10-07 11:29 | PROGRESS NOTE ---
DATE: 10/07/2018 SUBJECTIVE: The patient remains under hospice respite care and hospice has ordered the ambulance to come pick her up this morning. They are here now to pick her up, to discharge her. She has had the 5 days of respite care. OBJECTIVE: She did have a low-grade fever of 100.2. No obvious source. She is at her baseline. Looks about the room, is nonverbal, longstanding. CV: RRR. Lungs: Clear. Abdomen: Nontender, nondistended. PEG tube without signs of infection. Extremities: No major breakdown over the heels or legs. There is a scar on the left heel from prior breakdown but nothing acute. She has been tolerating her PEG feeds, stooling regularly. ASSESSMENT: 1. Low-grade fever. 2. Respite care, hospice. 3. Do Not Resuscitate level 1. 4. Severe dementia. 5. Seizure disorder. 6. History of prior cerebrovascular accident with dysphagia, on percutaneous endoscopic gastrostomy feeds. 7. Insulin-requiring diabetes mellitus. 8. Hypertension. 9. Chronic anxiety disorder. 10. Hypertension. PLAN: Discharge the patient home under the hospice care. Continue her home medications. Dr. Hernandez will follow up on the patient outpatient. cc: MD Gera Garcia MD
--- NOTE | 2018-10-07 21:03 | DISCHARGE SUMMARY ---
ADMISSION DATE: 10/02/2018 DISCHARGE DATE: 10/07/2018 DISCHARGING DIAGNOSIS: Respite care for end-stage dementia for 5 days. BRIEF HISTORY: Please see the H and P that was done by Dr. Hernandez on 10/02/2018. In brief, she is a 73-year-old white female admitted to the hospital basically respite care for 5 days. During this hospital course, the patient had low-grade fever and possible UTI symptoms. Follow up on urine cultures were negative. There was no need for antibiotics. Rest of the hospital course was uneventful. Patient was discharged by Dr. Starks in stable condition with the following instructions. DISCHARGE MEDICATIONS: Xanax 0.5 mg via PEG every 8 hours. Aspirin 81 mg daily. Lipitor 40 daily. Trazodone 100 at bedtime. Senna Plus 1 tablet p.o. b.i.d. Synthroid 50 mcg daily. Keppra 500 b.i.d. Lantus 26 units at bedtime. Hoskins 5 mg t.i.d. Lasix 40 mg daily. Pepcid 20 mg b.i.d. Plavix 75 mg at bedtime. Clonidine 0.1 b.i.d. Baclofen 10 four times daily. Isoptin 130 daily. Lisinopril 5 mg daily. Celexa 20 mg daily. Zofran for p.r.n. nausea. Guaifenesin syrup q.4 as needed. Insulin 70/30 with 20 units in the morning. Lactulose 30 mg as needed for breakthrough pain. Living Will. DNR. Care of the skin, bladder, and bowels. Continue all the medicines via PEG. Keep the head of the bed elevation for 45 degrees and follow up in IDG Meetings. cc: Gera Hernandez MD MTDD
== END 2018-10-07 11:23 | disposition hospice, home (50) | DRG 57 ==
LOC: DIRADM 08:05 → 3N 12:06
PROVIDERS: ADMIT Internal Medicine; ATTEND Internal Medicine
CPT/HCPCS: 82948; 87088; A9270; XXXXX